=== PATIENT | female | born 1975 | race Two or more races ===

== ENCOUNTER 2021-11-24 16:51 | Emergency (ER) | payer OTHER ==
[~2021-11-24] VITALS: Ht 162.6 cm; Wt 54.4 kg
[2021-11-24] MEDS ORDERED: CARAFATE1 GM PO (21:17)
[2021-11-24] MEDS ORDERED: OMEPRAZOLE40 MG PO (21:17)
[2021-11-24] MEDS ORDERED: LEVSIN/SL0.125 MG SL (21:17)
== END 2021-11-24 21:21 | disposition home or self-care (01) ==
LOC: ER 16:51
DX: R10.13 Epigastric pain (principal)

== ENCOUNTER 2023-03-27 13:55 | Emergency (ER) | payer OTHER ==
[~2023-03-27] VITALS: Ht 162.6 cm; Wt 52.2 kg
[~2023-03-27 13:55] MED LIST: CARAFATE1 GM PO; LEVSIN/SL0.125 MG SL; OMEPRAZOLE40 MG PO
[2023-03-27 18:45] LABS: HEMATOCRIT 38.2 % (36.0-45.00); HEMOGLOBIN 13.1 g/dL (12.0-15.00); MEAN CELL VOLUME 95.8 fL (80.00-100.00); MEAN CORPUSCULAR HEMOGLOBIN 32.9 pg (27.00-32.0); MEAN CORPUSCULAR HGB CONC 34.4 g/dl (32.0-36.0); PLATELET COUNT 326 K/uL (150-450); RED BLOOD COUNT 3.99 M/uL (4.00-6.00); RED CELL DISTRIBUTION WIDTH 13.1 % (11.5-14.5)
== END 2023-03-27 21:18 | disposition home or self-care (01) ==
LOC: ER 13:55
PROVIDERS: General Practice
DX: U07.1 COVID-19 (principal); J45.909 Unspecified asthma, uncomplicated